=== PATIENT | female | born 1965 | race Caucasian/White ===

== ENCOUNTER 2019-05-30 19:24 | Observation (INO) | payer OTHER ==
[~2019-05-30] VITALS: Ht 167.6 cm; Wt 65.0 kg
[~2019-05-30 19:24] MED LIST: UNISOM25 MG
[2019-05-30] MEDS ORDERED: SYNTHROID25 MCG PO (19:41)
[2019-05-30] MEDS ORDERED: PROG100 PO (19:41)
[2019-05-30] MEDS ORDERED: ESTR2 PO (19:42)
[2019-05-30 20:04] LABS: BASOPHILS ABSOLUTE AUTO 0.04 K/mm3 (0.00-0.23); BASOPHILS PERCENT AUTO 1 % (0-2); EOSINOPHILS ABSOLUTE AUTO 1.39 K/mm3 (0.00-0.68); EOSINOPHILS PERCENT AUTO 23 % (0-6); Hematocrit 36.8 % (33.0-51.0); Hemoglobin 12.9 g/dL (11.5-16.0); IMMATURE GRAN ABSOLUTE AUTO 0.02 K/mm3 (0.00-0.10); IMMATURE GRAN PERCENT AUTO 0 % (0-1); LYMPHOCYTES ABSOLUTE AUTO 0.75 K/mm3 (0.84-5.20); LYMPHOCYTES PERCENT AUTO 12 % (21-46); MONOCYTES ABSOLUTE AUTO 0.52 K/mm3 (0.16-1.47); MONOCYTES PERCENT AUTO 9 % (4-13); Mean Corpuscular HGB 36.1 pg (26.0-34.0); Mean Corpuscular HGB Conc 35.1 g/dL (31.5-36.5); Mean Corpuscular Volume 103 fL (80-100); NEUTROPHILS ABSOLUTE AUTO 3.37 K/mm3 (1.96-9.15); NEUTROPHILS PERCENT AUTO 55 % (41-73); Platelet Count 257 K/mm3 (150-400); RDW Coefficient Variation 11.4 % (11.7-14.2); RDW Standard Deviation 43.5 fL (35.1-46.3); Red Blood Cell Count 3.57 M/mm3 (3.80-5.20); White Blood Cell Count 6.09 K/mm3 (4.00-11.30)
[2019-05-30 20:32] LABS: Alanine Aminotransfer (ALT/SGP 222 U/L (12-78); Albumin, Blood 3.4 g/dL (3.4-5.0); Alk Phos 272 U/L (50-136); Anion Gap 5 mmol/L (6-16); Aspartate Aminotrans (AST/SGOT 303 U/L (12-37); Bilirubin, Total 0.5 mg/dL (0.1-1.0); Blood Urea Nitrogen 8 mg/dL (8-24); Bun/Creatinine Ratio 9.6 (12.0-20.0); CO2, Blood 28 mmol/L (21-32); Calcium, Blood 8.6 mg/dL (8.5-10.1); Chloride, Blood 107 mmol/L (98-108); Creatinine, Blood 0.83 mg/dL (0.40-1.00); Globulin, Blood 3.4 g/dL (2.2-4.0); Glomerular Filtration Rate >60 (60-); Glucose, Blood 100 mg/dL (70-99); Potassium, Blood 3.5 mmol/L (3.5-5.5); Sodium, Blood 140 mmol/L (136-145); Total Protein, Blood 6.8 g/dL (6.4-8.2); Troponin I <0.015 ng/mL (0.000-0.040)
--- NOTE | 2019-05-31 06:33 | NUR ---
a+o, contrast within 8 hr so not able to do scan this am, call light in reach, expecting stress test today, call light in reach, saline locked, room air, independant in room, will continue to monitor and treat until share bsr with day staff
[2019-05-31 07:58] LABS: Alanine Aminotransfer (ALT/SGP 268 U/L (12-78); Albumin, Blood 3.1 g/dL (3.4-5.0); Alk Phos 305 U/L (50-136); Anion Gap 6 mmol/L (6-16); Aspartate Aminotrans (AST/SGOT 342 U/L (12-37); Bilirubin, Total 0.9 mg/dL (0.1-1.0); Blood Urea Nitrogen 6 mg/dL (8-24); Bun/Creatinine Ratio 8.9 (12.0-20.0); CO2, Blood 25 mmol/L (21-32); Chloride, Blood 112 mmol/L (98-108); Creatinine, Blood 0.67 mg/dL (0.40-1.00); Glomerular Filtration Rate >60 (60-); Glucose, Blood 99 mg/dL (70-99); Potassium, Blood 3.6 mmol/L (3.5-5.5); Sodium, Blood 143 mmol/L (136-145); Total Protein, Blood 6.1 g/dL (6.4-8.2)
--- NOTE | 2019-05-31 09:22 | NUR ---
CALLED DR. MILLER TO VERIFY THAT THE STRESS TEST WAS CANCELED. PER DR. MILLER, IT IS ON HOLD AND TO KEEP THE PATIENT NPO UNTIL HE IS ABLE TO SEE THE PATIENT.
--- NOTE | 2019-05-31 16:48 | NUR ---
ANXIETY: PATIENT REPORTS HIGH ANXIETY. ENCOURAGED PATIENT TO AMBULATE OUTSIDE OF ROOM WITH HER FAMILY. DISCUSSED USE OF ANTI-ANXIETY MEDICATIONS IN THE PAST. CALLED DR. MILLER, NEW ORDER FOR LORAZEPAM.
--- NOTE | 2019-05-31 17:55 | NUR ---
CANCELED CONSULTATION: PER DR. MILLER, SURGERY CONSULTATION NEEDS TO BE CANCELED. NOTIFIED ANSWERING SERVICE FOR DR. العراقي THAT THE CONSULTATION HAS BEEN CANCELED.
--- NOTE | 2019-05-31 18:26 | NUR ---
END OF SHIFT SUMMARY: THIS MORNING, PATIENT REPORTED A CONTINUATION OF THE CHEST TIGHTNESS. AFTER RECEIVING A BREATHING TREATMENT AND MAALOX, PER DR. MILLER'S ORDER, THE PATIENT REPORTED IMPROVEMENT IN THIS FEELING. PATIENT REPORTS THAT THERE SEEMS TO BE A CORRELATION BETWEEN HER FEELINGS OF STRESS AND A RETURN OF THE CHEST TIGHTNESS. PATIENT NPO UNTIL AFTER LUNCH. PATIENT TOLERATED WELL. AWAITING THE ABDOMINAL CT. DUE TO CT YESTERDAY, PATIENT MUST WAIT [address] CAN BE PERFORMED. DR. MILLER AWARE. US REPORTS THAT IT MAY BE DONE LATE TONIGHT OR TOMORROW MORNING. PATIENT EXPERIENCING HIGH ANXIETY THIS AFTERNOON. DISCUSSED WITH DR. MILLER. NEW ORDERS FOR PRN LORAZEPAM (SEE NOTES AND EMAR). PATIENT EXPERIENCED RELIEF AFTER RECEIVING A PRN DOSE THIS AFTERNOON. PATIENT IS INDEPENDENT IN THE ROOM. PATIENT AMBULATED IN THE HALLS TO HELP RELIEVE ANXIETY. FAMILY AT BEDSIDE MOST OF THE DAY.
[2019-06-01 05:45] LABS: Alanine Aminotransfer (ALT/SGP 349 U/L (12-78); Albumin, Blood 3.2 g/dL (3.4-5.0); Alk Phos 421 U/L (50-136); Anion Gap 5 mmol/L (6-16); Aspartate Aminotrans (AST/SGOT 339 U/L (12-37); Bilirubin, Direct 0.2 mg/dL (0.0-0.3); Bilirubin, Indirect 0.3 mg/dL (0.1-0.7); Bilirubin, Total 0.5 mg/dL (0.1-1.0); Blood Urea Nitrogen 5 mg/dL (8-24); Bun/Creatinine Ratio 7.2 (12.0-20.0); CO2, Blood 27 mmol/L (21-32); Calcium, Blood 8.4 mg/dL (8.5-10.1); Chloride, Blood 110 mmol/L (98-108); Globulin, Blood 3.3 g/dL (2.2-4.0); Glomerular Filtration Rate >60 (60-); Glucose, Blood 109 mg/dL (70-99); Sodium, Blood 142 mmol/L (136-145); Total Protein, Blood 6.5 g/dL (6.4-8.2)
--- NOTE | 2019-06-01 06:38 | NUR ---
no chest pain, family in room, call light in reach, saline locked, room air, independant in room takes medication whole with water, will continue to monitor and treat until share bsr with day staff
--- NOTE | 2019-06-01 15:15 | NUR ---
PT TO IMAGING FOR MRI, ATIVAN GIVEN PRIOR FOR CLAUTERPHOBIA PER PT.
--- NOTE | 2019-06-01 17:17 | NUR ---
SHIFT SUMMARY- PT A/OX4, INDEP IN ROOM AND HALLS. PT MEDICATED WITH TYLENOL AND NORCO FOR LOWER BACK PAIN. PT DENIES ANY OTHER COMPLAINTS. MRI COMPLETED TODAY, GI CONSULTED. NO OTHER ACUTE CHANGES THIS SHIFT.
--- NOTE | 2019-06-01 17:52 | NUR ---
DR MORALES IN TO SEE PT.
[2019-06-01 18:33] LABS: Amylase, Blood 35 U/L (25-115)
[2019-06-01 18:34] LABS: International Normalized Ratio 0.94
--- NOTE | 2019-06-02 05:51 | NUR ---
SHIFT SUMMARY PT DENIES CHEST PAIN OR PRESSURE. MEDICATED WITH PRN LORAZEPAM AT BEDTIME. PT IS A&O X 4, INDEPENDENT IN RM, AMBULATES HALLS. VSS. LS CLEAR, RESP E/U ON RA. NORCO ADMINISTERED Q6H FOR CHRONIC LOW BACK PAIN. PT RESTING IN BED AT THIS TIME, DAUGHTER AT BEDSIDE. CALL LT IN REACH. WILL CONT TO MONITOR AND PROVIDE CARE UNTIL PRESUMED BY ONCOMING RN.
[2019-06-02 05:58] LABS: Alanine Aminotransfer (ALT/SGP 286 U/L (12-78); Albumin, Blood 3.2 g/dL (3.4-5.0); Albumin/Globulin Ratio 0.9 (0.8-1.8); Alk Phos 405 U/L (50-136); Anion Gap 9 mmol/L (6-16); Aspartate Aminotrans (AST/SGOT 146 U/L (12-37); Bilirubin, Total 0.5 mg/dL (0.1-1.0); Blood Urea Nitrogen 9 mg/dL (8-24); Bun/Creatinine Ratio 12.2 (12.0-20.0); CO2, Blood 24 mmol/L (21-32); Calcium, Blood 8.5 mg/dL (8.5-10.1); Chloride, Blood 108 mmol/L (98-108); Creatinine, Blood 0.74 mg/dL (0.40-1.00); Globulin, Blood 3.4 g/dL (2.2-4.0); Glomerular Filtration Rate >60 (60-); Glucose, Blood 168 mg/dL (70-99); Potassium, Blood 3.8 mmol/L (3.5-5.5); Sodium, Blood 141 mmol/L (136-145); Total Protein, Blood 6.6 g/dL (6.4-8.2)
--- NOTE | 2019-06-02 09:25 | NUR ---
DR MILLER IN TO SEE PT.
[2019-06-02] MEDS ORDERED: Zoloft25 MG PO (12:10)
[2019-06-02] MEDS ORDERED: LORA1 PO (12:11)
--- NOTE | 2019-06-02 12:19 | NUR ---
NEW PT PACKET GIVEN TO PT FOR [facility] DR ERNST. PT REPORTS SHE WILL FILL OUT BOTH PACKETS AND TURN THEM IN TO SEE WHO SHE CAN GET SET UP WITH FASTER. VASILIY SALMON FOR F/U APPT, PER THERE OFFICE THEY WILL TALK WITH DR SALMON TO SEE WHEN HE WANTS TO SEE THE PT AND THEY WILL CALL PT AND SET UP THE APPT. RX FAXED TO [facility]
--- NOTE | 2019-06-02 12:38 | NUR ---
DISCHARGE INSTRUCTIONS REVIEWED WITH PT. NO IV ACCESS. PT EDUCATED ON GETTING ESTABLISHED WITH A NEW PCP AND F/U WITH DR SALMON WELL F/U CT SCAN FOR LUNG NODULES. HARD SCRIPT FOR ATIVAN GIVEN TO PT. PT DC'D HOME AT 1240.
[2019-06-03 00:06] LABS: COMPLEMENT C3, SERUM 137 mg/dL (82-167); COMPLEMENT C4, SERUM 28 mg/dL (14-44)
[2019-06-03 02:06] LABS: HEP A AB, IGM Negative (Negative); HEP B CORE AB, IGM Negative (Negative)
[2019-06-03 08:08] LABS: HBSAG SCREEN Negative (Negative); HEP B CORE AB, TOT Negative (Negative); HEP C VIRUS AB <0.1 (0.0-0.9)
[2019-06-03 14:09] LABS: ANTI-DSDNA ANTIBODIES <1 IU/mL (0-9); RNP ANTIBODIES <0.2 AI (0.0-0.9); SJOGREN'S ANTI-SS-A <0.2 AI (0.0-0.9); SJOGREN'S ANTI-SS-B <0.2 AI (0.0-0.9); SMITH ANTIBODIES <0.2 AI (0.0-0.9)
[2019-06-07 15:07] LABS: ANA DIRECT Negative (Negative); ANTIMYELOPEROXIDASE (MPO) ABS <9.0 U/mL (0.0-9.0); ANTIPROTEINASE 3 (PR-3) ABS <3.5 U/mL (0.0-3.5); ATYPICAL PANCA <1:20 titer (Neg:<1:20); CYTOPLASMIC (C-ANCA) <1:20 titer (Neg:<1:20); PERINUCLEAR (P-ANCA) <1:20 titer (Neg:<1:20)
[2019-08-09] MEDS ORDERED: BIJUVA 1 MG-101 EACH PO (12:08)
[2019-08-09] MEDS ORDERED: SERT50 PO (12:09)
== END 2019-06-02 12:40 | disposition home or self-care (01) ==
LOC: ER 19:24 → MEDS 19:26 → ER 05-31 01:24 → MEDS 05-31 01:24 → ENPENDDIS 06-02 12:39 → MEDS 06-02 12:40
PROVIDERS: Emergency Medicine; Hospitalist; Student in an Organized Health Care Education/Training Program; ADMIT Internal Medicine
DX: R07.9 Chest pain, unspecified (principal); R91.1 Solitary pulmonary nodule; R79.89 Other specified abnormal findings of blood chemistry; E03.9 Hypothyroidism, unspecified; F17.210 Nicotine dependence, cigarettes, uncomplicated; Z88.2 Allergy status to sulfonamides; Z79.899 Other long term (current) drug therapy
CPT/HCPCS: 36415; 71046; 71260; 74170; 74181; 76705; 80053; 80076; 82150; 82977; 83516; 83520; 83690; 84443; 84484; 85025; 85379; 85610; 86038; 86160; 86225; 86235; 86256; 86317; 86704; 86705; 86708; 86709; 86803; 87340; 93005; 93010; 93306; 96365; 96367; 96374-59; 96375-59; 96376-59; 99285-25; A9270; A9270-GY; G0378; J0696; J3010; J7050; Q9967

== ENCOUNTER → 2019-07-13 | Outpatient (CLI) | payer OTHER ==
[~2019-07-13] MED LIST changes: +BIJUVA 1 MG-101 EACH PO; +ESTR2 PO; +LORA1 PO; +PROG100 PO; +SERT50 PO; +SYNTHROID25 MCG PO; +Zoloft25 MG PO
[2019-07-13 10:45] LABS: Alanine Aminotransfer (ALT/SGP 17 U/L (12-78); Albumin, Blood 3.9 g/dL (3.4-5.0); Albumin/Globulin Ratio 1.4 (0.8-1.8); Alk Phos 46 U/L (50-136); Anion Gap 5 mmol/L (6-16); Aspartate Aminotrans (AST/SGOT 13 U/L (12-37); Bilirubin, Total 0.9 mg/dL (0.1-1.0); Blood Urea Nitrogen 12 mg/dL (8-24); Bun/Creatinine Ratio 15.2 (12.0-20.0); CO2, Blood 30 mmol/L (21-32); Calcium, Blood 9.2 mg/dL (8.5-10.1); Chloride, Blood 104 mmol/L (98-108); Creatinine, Blood 0.79 mg/dL (0.40-1.00); Globulin, Blood 2.8 g/dL (2.2-4.0); Glomerular Filtration Rate >60 (60-); Glucose, Blood 92 mg/dL (70-99); Potassium, Blood 4.3 mmol/L (3.5-5.5); Sodium, Blood 139 mmol/L (136-145); Total Protein, Blood 6.7 g/dL (6.4-8.2)
== END | disposition home or self-care (01) ==
LOC: LAB SHORT 09:42 → LAB 09:42
PROVIDERS: Nurse Practitioner Adult Health
DX: R10.84 Generalized abdominal pain (principal); R79.9 Abnormal finding of blood chemistry, unspecified
CPT/HCPCS: 80053

== ENCOUNTER 2019-09-05 04:40 | Emergency (ER) | payer OTHER ==
[~2019-09-05] VITALS: Ht 167.6 cm; Wt 61.2 kg
[2019-09-07] MEDS ORDERED: TESTOS (16:47)
[2019-09-07] MEDS ORDERED: ESTRADIOL (16:47)
[2019-09-07] MEDS ORDERED: PRED20 PO (16:48)
[2019-09-07] MEDS ORDERED: HYDR1TAB94 PO (16:49)
[2019-09-07] MEDS ORDERED: AMOCLA875 PO (16:49)
== END 2019-09-05 05:23 | disposition home or self-care (01) ==
LOC: ER 04:40
DX: K11.20 Sialoadenitis, unspecified (principal); F17.200 Nicotine dependence, unspecified, uncomplicated; Z88.5 Allergy status to narcotic agent; Z79.899 Other long term (current) drug therapy
CPT/HCPCS: 96372; 99283-25; A9270; J1885

== ENCOUNTER 2019-09-12 09:15 | Day surgery (SDC) | payer OTHER ==
[~2019-09-12] VITALS: Ht 167.6 cm; Wt 61.7 kg
[~2019-09-12 09:15] MED LIST changes: +AMOCLA875 PO; +ESTRADIOL; +HYDR1TAB94 PO; +PRED20 PO; +TESTOS
[2019-09-12] MEDS ORDERED: Roxicodone5 MG PO (09:56)
--- NOTE | 2019-09-12 10:00 | NUR ---
History, Chart, Medications and Allergies reviewed before start of procedure. Patient confirms NPO status and agrees with scheduled surgery. Patient States Post-Procedure ride home has been arranged with her , DERICK BRENNAN.
[2019-09-29] MEDS ORDERED: ZOLOFT25 MG PO (08:48)
[2019-09-29] MEDS ORDERED: Synthroid25 MCG PO (08:48)
[2019-09-29] MEDS ORDERED: PROG100 PO (08:48)
[2019-09-29] MEDS ORDERED: ESTRADIOL/TESTOSTERO SL (08:49)
[2019-09-29] MEDS ORDERED: PROM25 PO (08:50)
[2019-09-29] MEDS ORDERED: OXYC5 PO (08:50)
== END 2019-09-12 13:28 | disposition home or self-care (01) ==
LOC: ORSCMMR 09:15 → ORD 11:00 → ORSCMMR 13:28
PROVIDERS: Surgery
PROC: 0FT44ZZ Resection of Gallbladder, Percutaneous Endoscopic Approach (ICD-10-PCS; principal; 2019-09-12 11:00)
PROC: BF031ZZ Plain Radiography of Gallbladder and Bile Ducts using Low Osmolar Contrast (ICD-10-PCS; principal; 2019-09-12 11:00)
DX: K81.9 Cholecystitis, unspecified (principal); R93.3 Abnormal findings on diagnostic imaging of other parts of digestive tract; Z87.891 Personal history of nicotine dependence; Z79.899 Other long term (current) drug therapy
CPT/HCPCS: 74300; 88304; A9270-GY; C1729; J0690; J1100; J1885; J2250; J2405; J2704; J2710; J3010; J7120

== ENCOUNTER 2019-10-05 09:30 | Day surgery (SDC) | payer OTHER ==
[~2019-10-05] VITALS: Ht 170.2 cm; Wt 59.8 kg
[~2019-10-05 09:30] MED LIST changes: +ESTRADIOL/TESTOSTERO SL; +OXYC5 PO; +PROM25 PO; +Roxicodone5 MG PO; +Synthroid25 MCG PO; +ZOLOFT25 MG PO
--- NOTE | 2019-10-05 11:45 | NUR ---
10/05/19 7837 Yelitza Hand PT WAS UPDATED AT 1100 ON APPROXIMATE START TIME. SHE STATED SHE WAS COMFORTABLE AT THIS TIME. FAMILY IS AT THE BEDSIDE AND CALL LIGHT IS WITHIN REACH.
== END 2019-10-05 15:15 | disposition home or self-care (01) ==
LOC: ORSCSDS 09:30
PROVIDERS: Otolaryngology
PROC: 0CBH0ZX Excision of Left Submaxillary Gland, Open Approach, Diagnostic (ICD-10-PCS; principal; 2019-10-05 11:00)
DX: K11.23 Chronic sialoadenitis (principal); K11.5 Sialolithiasis; Z87.891 Personal history of nicotine dependence; Z79.899 Other long term (current) drug therapy
CPT/HCPCS: 88307; J0171; J0330; J1100; J2250; J2405; J2704; J3010; J7120

== ENCOUNTER → 2021-01-30 | Outpatient (CLI) | payer OTHER | END | disposition home or self-care (01) | LOC: LAB SHORT 07:38 | DX: N84.1 Polyp of cervix uteri (principal) | CPT/HCPCS: 88305 ==

== ENCOUNTER → 2021-07-20 | Outpatient (CLI) | payer OTHER ==
[2021-07-20 15:09] LABS: BASOPHILS ABSOLUTE AUTO 0.03 K/mm3 (0.00-0.23); BASOPHILS PERCENT AUTO 1 % (0-2); EOSINOPHILS ABSOLUTE AUTO 0.11 K/mm3 (0.00-0.68); EOSINOPHILS PERCENT AUTO 2 % (0-6); Hematocrit 39.5 % (33.0-51.0); Hemoglobin 13.9 g/dL (11.5-16.0); IMMATURE GRAN ABSOLUTE AUTO 0.01 K/mm3 (0.00-0.10); IMMATURE GRAN PERCENT AUTO 0 % (0-1); LYMPHOCYTES ABSOLUTE AUTO 1.88 K/mm3 (0.84-5.20); LYMPHOCYTES PERCENT AUTO 36 % (21-46); MONOCYTES ABSOLUTE AUTO 0.42 K/mm3 (0.16-1.47); MONOCYTES PERCENT AUTO 8 % (4-13); Mean Corpuscular HGB 34.6 pg (26.0-34.0); Mean Corpuscular HGB Conc 35.2 g/dL (31.5-36.5); Mean Corpuscular Volume 98 fL (80-100); Mean Platelet Volume 9.8 fL (9.1-12.4); NEUTROPHILS ABSOLUTE AUTO 2.84 K/mm3 (1.96-9.15); NEUTROPHILS PERCENT AUTO 54 % (41-73); Platelet Count 316 K/mm3 (150-400); RDW Coefficient Variation 11.5 % (11.7-14.2); RDW Standard Deviation 41.6 fL (35.1-46.3); Red Blood Cell Count 4.02 M/mm3 (3.80-5.20); White Blood Cell Count 5.29 K/mm3 (4.00-11.30)
[2021-07-20 15:27] LABS: Alanine Aminotransfer (ALT/SGP 56 U/L (12-78); Albumin, Blood 4.2 g/dL (3.4-5.0); Albumin/Globulin Ratio 1.2 (0.8-1.8); Alk Phos 146 U/L (40-126); Anion Gap 9 mmol/L (6-16); Aspartate Aminotrans (AST/SGOT 25 U/L (12-37); Bilirubin, Total 0.6 mg/dL (0.1-1.0); Blood Urea Nitrogen 8 mg/dL (8-24); Bun/Creatinine Ratio 10.4 (12.0-20.0); CO2, Blood 31 mmol/L (21-32); Calcium, Blood 9.5 mg/dL (8.5-10.1); Chloride, Blood 103 mmol/L (98-108); Creatinine, Blood 0.77 mg/dL (0.40-1.00); Globulin, Blood 3.5 g/dL (2.2-4.0); Glomerular Filtration Rate >60 (60-); Glucose, Blood 105 mg/dL (70-99); Potassium, Blood 4.3 mmol/L (3.5-5.5); Sodium, Blood 143 mmol/L (136-145); Thyroid Stimulating Hormone 2.126 uIU/mL (0.360-4.800); Total Protein, Blood 7.7 g/dL (6.4-8.2)
== END | disposition home or self-care (01) ==
LOC: LAB 14:55 → LAB SHORT 14:55
PROVIDERS: Physician Assistant
DX: M79.10 Myalgia, unspecified site (principal); R53.83 Other fatigue
CPT/HCPCS: 80053; 84443; 85025; 85651

== ENCOUNTER 2021-08-24 05:11 | Emergency (ER) | payer OTHER ==
[~2021-08-24] VITALS: Ht 167.6 cm; Wt 61.7 kg
[2021-08-24] MEDS ORDERED: SERTRALINE (05:35)
[2021-08-24] MEDS ORDERED: OXYC10TA19 (05:35)
[2021-08-24 08:27] LABS: BASOPHILS ABSOLUTE AUTO 0.04 K/mm3 (0.00-0.23); BASOPHILS PERCENT AUTO 0 % (0-2); EOSINOPHILS ABSOLUTE AUTO 0.03 K/mm3 (0.00-0.68); EOSINOPHILS PERCENT AUTO 0 % (0-6); IMMATURE GRAN ABSOLUTE AUTO 0.09 K/mm3 (0.00-0.10); IMMATURE GRAN PERCENT AUTO 1 % (0-1); LYMPHOCYTES ABSOLUTE AUTO 1.27 K/mm3 (0.84-5.20); LYMPHOCYTES PERCENT AUTO 8 % (21-46); MONOCYTES PERCENT AUTO 6 % (4-13); Mean Corpuscular HGB 34.8 pg (26.0-34.0); Mean Corpuscular HGB Conc 35.7 g/dL (31.5-36.5); Mean Corpuscular Volume 97 fL (80-100); Mean Platelet Volume 10.2 fL (9.1-12.4); NEUTROPHILS ABSOLUTE AUTO 13.84 K/mm3 (1.96-9.15); NEUTROPHILS PERCENT AUTO 85 % (41-73); Platelet Count 241 K/mm3 (150-400); RDW Coefficient Variation 11.3 % (11.7-14.2); RDW Standard Deviation 41.2 fL (35.1-46.3); Red Blood Cell Count 4.31 M/mm3 (3.80-5.20); White Blood Cell Count 16.27 K/mm3 (4.00-11.30)
[2021-08-24 08:43] LABS: Alanine Aminotransfer (ALT/SGP 65 U/L (12-78); Albumin, Blood 3.6 g/dL (3.4-5.0); Albumin/Globulin Ratio 0.9 (0.8-1.8); Alk Phos 134 U/L (50-136); Anion Gap 4 mmol/L (6-16); Aspartate Aminotrans (AST/SGOT 31 U/L (12-37); Bilirubin, Total 1.4 mg/dL (0.1-1.0); Blood Urea Nitrogen 5 mg/dL (8-24); Bun/Creatinine Ratio 7.7 (12.0-20.0); CO2, Blood 30 mmol/L (21-32); Calcium, Blood 9.1 mg/dL (8.5-10.1); Chloride, Blood 103 mmol/L (98-108); Creatinine, Blood 0.65 mg/dL (0.40-1.00); Globulin, Blood 3.8 g/dL (2.2-4.0); Glomerular Filtration Rate >60 (60-); Glucose, Blood 115 mg/dL (70-99); Potassium, Blood 3.6 mmol/L (3.5-5.5); Sodium, Blood 137 mmol/L (136-145); Total Protein, Blood 7.4 g/dL (6.4-8.2)
[2021-08-24] MEDS ORDERED: AMOCLA875 PO (09:39)
[2021-08-24] MEDS ORDERED: DICY20 PO (10:28)
== END 2021-08-24 10:32 | disposition home or self-care (01) ==
LOC: ER 05:11
PROVIDERS: Emergency Medicine
DX: K52.9 Noninfective gastroenteritis and colitis, unspecified (principal); F17.200 Nicotine dependence, unspecified, uncomplicated; Z88.5 Allergy status to narcotic agent
CPT/HCPCS: 36415; 74018; 74177; 80053; 82272; 83690; 85025; 96374; 96375; 99284-25; A9270; J2405; J3010; J7030; Q9967

== ENCOUNTER 2022-03-23 14:58 | Emergency (ER) | payer OTHER ==
[~2022-03-23] VITALS: Ht 167.6 cm; Wt 63.5 kg
[~2022-03-23 14:58] MED LIST changes: +DICY20 PO; +OXYC10TA19; +SERTRALINE
[2022-03-23 15:42] LABS: BASOPHILS ABSOLUTE AUTO 0.03 K/mm3 (0.00-0.23); BASOPHILS PERCENT AUTO 1 % (0-2); EOSINOPHILS ABSOLUTE AUTO 0.11 K/mm3 (0.00-0.68); EOSINOPHILS PERCENT AUTO 2 % (0-6); Hematocrit 37.2 % (33.0-51.0); Hemoglobin 13.1 g/dL (11.5-16.0); IMMATURE GRAN ABSOLUTE AUTO 0.01 K/mm3 (0.00-0.10); IMMATURE GRAN PERCENT AUTO 0 % (0-1); LYMPHOCYTES ABSOLUTE AUTO 1.98 K/mm3 (0.84-5.20); LYMPHOCYTES PERCENT AUTO 36 % (21-46); MONOCYTES ABSOLUTE AUTO 0.38 K/mm3 (0.16-1.47); MONOCYTES PERCENT AUTO 7 % (4-13); Mean Corpuscular HGB 34.5 pg (26.0-34.0); Mean Corpuscular HGB Conc 35.2 g/dL (31.5-36.5); Mean Corpuscular Volume 98 fL (80-100); Mean Platelet Volume 9.6 fL (9.1-12.4); NEUTROPHILS ABSOLUTE AUTO 2.98 K/mm3 (1.96-9.15); NEUTROPHILS PERCENT AUTO 54 % (41-73); Platelet Count 283 K/mm3 (150-400); RDW Coefficient Variation 11.2 % (11.7-14.2); RDW Standard Deviation 40.6 fL (35.1-46.3); White Blood Cell Count 5.49 K/mm3 (4.00-11.30)
[2022-03-23 16:08] LABS: Albumin, Blood 3.9 g/dL (3.4-5.0); Albumin/Globulin Ratio 1.2 (0.8-1.8); Bilirubin, Total 0.5 mg/dL (0.1-1.0); Bun/Creatinine Ratio 18.1 (12.0-20.0); Creatinine, Blood 0.5 mg/dL (0.40-1.00); Globulin, Blood 3.2 g/dL (2.2-4.0); Potassium, Blood 3.9 mmol/L (3.5-5.5); Total Protein, Blood 7.1 g/dL (6.4-8.2)
== END 2022-03-23 19:37 | disposition home or self-care (01) ==
LOC: ER 14:58
PROVIDERS: Emergency Medicine
DX: R07.89 Other chest pain (principal); F17.210 Nicotine dependence, cigarettes, uncomplicated; R11.2 Nausea with vomiting, unspecified; R06.02 Shortness of breath; Z79.899 Other long term (current) drug therapy
CPT/HCPCS: 36415; 71046; 80053; 84484; 85025; 93005; 93010; 99285-25

== ENCOUNTER → 2023-10-02 | Outpatient (CLI) | payer OTHER ==
[2023-10-06 22:31] LABS: 6-ACETYLMORPHINE, URN, QUANT <10 ng/mL; CODEINE, URN, QUANT <20 ng/mL; HYDROCODONE, URN, QUANT <20 ng/mL; HYDROMORPHONE, URN, QUANT <20 ng/mL; MORPHINE, URN, QUANT <20 ng/mL; NORHYDROCODONE, URN, QUANT <20 ng/mL; NOROXYCODONE, URN, QUANT 2283 ng/mL; NOROXYMORPHONE, URN, QUANT 184 ng/mL; OXYCODONE, URN, QUANT 927 ng/mL; OXYMORPHONE, URN, QUANT <20 ng/mL
[2023-10-07 10:20] LABS: BUPRENORPHINE GLUC,URN,QUANT <5 ng/mL; BUPRENORPHINE,URN,QUANT <2 ng/mL; NALOXONE,URN,QUANT <100 ng/mL; NORBUPRENORPHINE GLUC,UR,QUANT 6 ng/mL; NORBUPRENORPHINE,URN,QUANT 2 ng/mL
== END ==
LOC: LAB 15:19 → LAB SHORT 15:19
PROVIDERS: Family Medicine
DX: Z79.899 Other long term (current) drug therapy (principal)
CPT/HCPCS: G0480

== ENCOUNTER → 2023-11-04 | Outpatient (CLI) | payer OTHER ==
[2023-11-08 06:50] LABS: BUPRENORPHINE GLUC,URN,QUANT 17 ng/mL; BUPRENORPHINE,URN,QUANT <2 ng/mL; NALOXONE,URN,QUANT <100 ng/mL; NORBUPRENORPHINE GLUC,UR,QUANT 42 ng/mL; NORBUPRENORPHINE,URN,QUANT 11 ng/mL
== END ==
LOC: LAB 12:00 → LAB SHORT 12:00
PROVIDERS: Family Medicine
DX: Z79.899 Other long term (current) drug therapy (principal)
CPT/HCPCS: G0480